=== PATIENT | male | born 1980 | race Caucasian/White ===

== ENCOUNTER 2019-09-19 21:07 | Emergency (ER) | payer MEDICAID ==
[~2019-09-19] VITALS: Ht 170.2 cm; Wt 69.0 kg
--- NOTE | 2019-09-19 22:17 | NUR ---
REPORT FROM STACEY RIVERA. PLAN OF CARE DISCUSSED. STACEY RIVERA STATES [facility]A WAS COLLECTED AND SENT.
[2019-09-19 22:25] VITALS: BP 138/90
--- NOTE | 2019-09-19 22:26 | NUR ---
PATIENT TO US
[2019-09-19 22:27] LABS: MICROSCOPIC INDICATED
--- NOTE | 2019-09-19 22:47 | NUR ---
PATIENT BACK FROM US, SPO2 AND BP MONITORING IN PLACE. CALL LIGHT IN REACH. SIGNIFICANT OTHER IN ROOM
== END 2019-09-19 23:21 | disposition home or self-care (01) ==
LOC: ED 21:57
DX: S39.011A Strain of muscle, fascia and tendon of abdomen, initial encounter (principal); F17.200 Nicotine dependence, unspecified, uncomplicated; X58.XXXA Exposure to other specified factors, initial encounter; Y93.89 Activity, other specified; Y92.89 Other specified places as the place of occurrence of the external cause; Y99.8 Other external cause status
CPT/HCPCS: 76870; 81001; 99284

== ENCOUNTER 2019-10-04 03:36 | Emergency (ER) | payer MEDICAID ==
[~2019-10-04] VITALS: Ht 170.2 cm; Wt 68.5 kg
[2019-10-04 03:46] VITALS: BP 125/88
--- NOTE | 2019-10-04 05:34 | NUR ---
[facility] CALLED PT FOR XRAY. PT NIL
--- NOTE | 2019-10-04 05:40 | NUR ---
PT [id number]
--- NOTE | 2019-10-04 06:19 | NUR ---
nilx3 lwbs
== END 2019-10-04 06:20 | disposition left against medical advice (07) ==
LOC: ED 06:14
DX: M79.645 Pain in left finger(s) (principal); Z53.21 Procedure and treatment not carried out due to patient leaving prior to being seen by health care provider

== ENCOUNTER 2019-11-17 09:24 | Emergency (ER) | payer MEDICAID ==
[~2019-11-17] VITALS: Ht 170.2 cm; Wt 66.5 kg
--- NOTE | 2019-11-17 09:46 | NUR ---
FIRST CONTACT WITH PT. PT HAD L PINKY SX ABOUT 1 MONTH AGO. PT C/O LEFT PINKY FINGER RED AND SWOLLEN/PAIN SINCE MONDAY. PT DENIES ANY OTHER SYMPTOMS. PT'S AOX4. RESPS EVEN AND UNLABORED. BP/SPO2 MONITORS IN PLACE. PA/EDMD AT BEDSIDE EVALUATING AT THIS TIME.
--- NOTE | 2019-11-17 10:01 | NUR ---
LAB AT BEDSIDE.
[2019-11-17 10:14] LABS: BASOPHILS # (AUTO) 0.05 x10^3/uL (0-0.1); BASOPHILS % (AUTO) 1 % (0-1); EOSINOPHILS % (AUTO) 1 % (1-7); LYMPHOCYTES # (AUTO) 1.12 x10^3/uL (1-3.4); LYMPHOCYTES % (AUTO) 16 % (22-44); MD NO; MEAN CORPUSCULAR HEMOGLOBIN 31.6 pg (27.5-34.5); MEAN CORPUSCULAR HGB CONC 33.9 g/dL (33.2-36.2); MEAN CORPUSCULAR VOLUME 93.3 fL (81-97); MEAN PLATELET VOLUME 8.1 fL (7.4-10.4); MONOCYTES # (AUTO) 0.55 x10^3/uL (0.2-0.8); MONOCYTES % (AUTO) 8 % (2-9); NEUTROPHILS # (AUTO) 5.39 x10^3/uL (1.8-6.8); NEUTROPHILS % (AUTO) 75 % (42-75); PLATELET COUNT 178 x10^3/uL (130-400); RED BLOOD COUNT 4.92 x10^6/uL (4.38-5.82); RED CELL DISTRIBUTION WIDTH 13.5 % (9.4-14.8)
[2019-11-17 10:20] LABS: ALBUMIN 3.9 g/dL (3.4-5.0); CALCIUM 8.9 mg/dL (8.5-10.1); CREATININE 1.04 mg/dL (0.7-1.3)
[2019-11-17 10:23] LABS: ANION GAP 5 mmol/L (5-15)
[2019-11-17 10:24] LABS: CHLORIDE 112 mmol/L (98-107)
[2019-11-17] MEDS ORDERED: PHARMACOKINETIC CONSULTATION MC ONE (11:00)
[2019-11-17] MEDS ORDERED: VANCOMYCIN 1,500 MG in SODIUM CHLORIDE 0.9% 250 ML IV ONE (11:00)
[2019-11-17] MEDS ORDERED: VANCOMYCIN PER PHARMACY MC PRN (11:00)
--- NOTE | 2019-11-17 11:04 | NUR ---
PIV EST ON L FOREARM WITH NO COMPLICATIONS. PT TOLERATED WELL.
--- NOTE | 2019-11-17 11:15 | NUR ---
VANCO INFUSING AT THIS TIME AFTER BC X 2. PT TOLERATED WELL.
--- NOTE | 2019-11-17 12:15 | NUR ---
PT RESTING IN [facility]. PT'S AOX4. RESPS EVEN AND UNLABORED. BP/SPO2 MONITORS IN PLACE. CALL LIGHT WITHIN REACH.
--- NOTE | 2019-11-17 12:41 | NUR ---
break RN note: pt resting on gurney, resps even and unlabored. vss. pt denies any needs. vanco infusing via IV pump, approx 15 min left of infusion. pt to be discharged upon completion of infusion.
[2019-11-17 13:18] VITALS: BP 112/80
== END 2019-11-17 13:21 | disposition home or self-care (01) ==
LOC: ED 10:24
DX: L03.012 Cellulitis of left finger (principal); M79.642 Pain in left hand
CPT/HCPCS: 36415; 73140; 80048; 82040; 83605; 85025; 87040; 96365; 96366; 99285; J3370; J7050